=== PATIENT | male | born 1960 | race Caucasian/White ===

== ENCOUNTER 2022-04-27 11:23 | Observation (INO) ==
--- NOTE | 2022-04-14 13:32 | PAT Medication Instructions ---
Medication Instructions Date of Service April 14, 2022 Home Medications dexlansoprazole 60 mg capsule,biphase delayed release (Dexilant) 60 mg PO QAM losartan 100 mg-hydrochlorothiazide 25 mg tablet (Hyzaar) 1 tab PO QAM multivitamin 1 tab PO QAM potassium chloride 20 mEq tablet,extended release 20 meq PO QAM zolpidem 5 mg tablet (Ambien) 5 mg PO HS PRN Sleep DO NOT take the morning of surgery losartan 100 mg-hydrochlorothiazide 25 mg tablet (Hyzaar) 1 tab PO QAM multivitamin 1 tab PO QAM potassium chloride 20 mEq tablet,extended release 20 meq PO QAM Take morning of surgery With a small sip of water, OTHERWISE NOTHING TO EAT OR DRINK AFTER MIDNIGHT: dexlansoprazole 60 mg capsule,biphase delayed release (Dexilant) 60 mg PO QAM Take evening before surgery zolpidem 5 mg tablet (Ambien) 5 mg PO HS PRN Sleep (if needed) Other Notes If you have any questions please call us at [phone] or [phone] or [phone] or [phone]
--- NOTE | 2022-04-17 14:24 | Anesthesiology Consultation ---
Date of Service April 17, 2022 Assessment & Plan (1) Encounter for pre-operative examination: - Outpatient joint assessment: Patient is currently scheduled for inpatient pathway. If re-evaluated pending system levels during current pandemic/surgeon requests outpatient pathway, patient is acceptable candidate for outpatient joint program from anesthesia standpoint pending surgeon's office assessment of pt motivation/support/completion of same day joint program preop requirements. Chart Review Chart Review: Acceptable Risk for Surgery and Patient seen in Pre Admission Testing Teaching & Discussion Pre-Anesthesia Teaching/Discussion Notes: Instructed NPO after midnight before surgery, except medications with 15 cc of water. Medication instructions provided according to the PAT guidelines. History Surgery Operation Date: 04/27/22 10:05 Proposed Procedures p Left Total Shoulder Arthroplasty, Distal Clavicle Excision, Removal Loose Body, Biceps Tenodesis - Vineet Rome MD Height/Weight Height: 5 ft 10 in Weight: 99.79 kg Allergies Allergy/AdvReac Type Severity Reaction Status Date / Time sulfamethoxazole Allergy Mild Rash Verified 04/14/22 09:50 [From Bactrim] trimethoprim [From Bactrim] Allergy Mild Rash Verified 04/14/22 09:50 Medications Home Medications Medication Instructions Recorded Confirmed Last Taken dexlansoprazole 60 mg 60 mg PO QAM 04/14/22 04/14/22 Unknown capsule,biphase delayed release (Dexilant) losartan 100 1 tab PO QAM 04/14/22 04/14/22 Unknown mg-hydrochlorothiazide 25 mg tablet (Hyzaar) multivitamin 1 tab PO QAM 04/14/22 04/14/22 Unknown potassium chloride 20 mEq 20 meq PO QAM 04/14/22 04/14/22 Unknown tablet,extended release zolpidem 5 mg tablet (Ambien) 5 mg PO HS PRN Sleep 04/14/22 04/14/22 Unknown Past Medical History Medical History (Updated 04/17/22 @ 14:35 by Sammi Tafoya PA-C) GERD (gastroesophageal reflux disease) controlled, stable per pt History of COVID-26 OCTOBER 2021>denies hospitalization-RESOLVED Hypertension controlled, stable per pt Patient denies h/o stroke, seizures, heart attack, heart failure, DM, blood clots or blood transfusions. Exercise / Class Metabolic Activity II 4-5 Yardwork/Stairs/Walk up hill (denies CP or SOB with 1 FOS) Past Family History Family History Other No family history of adverse response to anesthesia Past Surgical History Surgical History H/O arthroscopic knee surgery MULTIPLE RT/LEFT SCOPES H/O shoulder surgery TOTAL 3 SURGERIES (RT/LEFT) H/O uvulectomy H/O wisdom tooth extraction History of cardiac cath 01/16/20: nonobstructive single-vessel coronary disease, no stent placement History of colonoscopy History of esophagogastroduodenoscopy (EGD) History of total knee replacement RT/LEFT Past Anesthesia History No Hx of Anesthesia Complications and No Family Hx of Anesthesia Complications History of PONV No Hx of PONV and No Hx of Motion Sickness Social History Smoking Status: Never smoker Do You Dip or Chew Tobacco: No Hx Alcohol Use: Yes Alcohol type: beer, wine and hard liquor alcohol intake frequency: a few times a month substance use type: does not use Review of Systems Snoring, denies witnessed apneas. Patient denies chest pain, shortness of breath, dyspnea on exertion, fever, chills, cough, wheezing, or palpitations. Physical Exam Vital Signs Vitals BP 119/79 P 74 TEMP 98.3 SP02 97% on RA RESP 18 Physical Full cervical extension range of motion without pain TMD 3.5 finger breadths Mallampati Score 2 Dentition: intact, one crown; denies chipped or loose teeth, implants or bridges Lungs: normal respiratory effort. Clear throughout to auscultation, no adventitious breath sounds Cardiac: regular rate and rhythm, no murmurs noted Carotid arteries: negative bruit bilat Lab Results Anesthesia Preop Results Results Anesthesia Widget: WBC 6.79 K/ul (4.8-10.8) 04/17/22 Hgb 16.1 g/dl (14.0-18.0) 04/17/22 Hct 46.0 % (40.1-51.0) 04/17/22 Plt 262 K/uL (130-400) 04/17/22 Na 138 mmol/L (136-145) 04/17/22 K 3.7 mmol/L (3.5-5.1) 04/17/22 Cl 102 mmol/L (98-107) 04/17/22 CO2 29 mmol/L (21-32) 04/17/22 BUN 17 mg/dl (6-23) 04/17/22 Creat 0.96 mg/dl (0.6-1.4) 04/17/22 Glucose Level 73 mg/dl (70-99(Fasting)) 04/17/22 PT 10.7 Seconds (9.0-12.0) 04/17/22 PTT 30.4 Seconds (21.0-31.0) 04/17/22 INR 1.0 (0.9-1.1) 04/17/22 HA1c 5.5 % (4.5-5.6) 04/17/22 Urine Color Yellow 04/17/22 Urine Appearance Clear (Clear) 04/17/22 Urine pH 5.5 (4.5-7.5) 04/17/22 Urine Specific [place] 1.017 (1.000-1.030) 04/17/22 Urine Protein Negative (Negative) 04/17/22 Urine Glucose (UA) Negative (Negative) 04/17/22 Urine Ketones Negative (Negative) 04/17/22 Urine Blood Negative (Negative) 04/17/22 Urine Nitrite Negative (Negative) 04/17/22 Urine Bilirubin Negative (Negative) 04/17/22 Urine Urobilinogen Negative (Negative) 04/17/22 Urine Leukocyte Esterase Negative (Negative) 04/17/22 Blood Type O Positive 04/17/22 Antibody Screen NEGATIVE 04/17/22 Testing Electrocardiogram Date: 04/17/22 NSR, rate 65 bpm Chest X-Ray Date: 04/17/22 Cardiac mediastinal and hilar silhouettes are within normal limits. There is no pneumothorax, pleural effusion, airspace consolidation or overt pulmonary edema. Bones of the chest appear grossly intact. IMPRESSION: No acute process. Cardiac Catheterization Date: 01/16/20 Left main: angiographically normal LAD: diffuse 40% narrowing with some ectasis on either side of the narrowing, proximal 20% stenosis Cx: angiographically normal RCA: angiographically normal EF 55%, no LV wall motion abnormality Non-obstructive single-vessel coronary disease COVID-19 Risk Screen Screening Information COVID-19 Screen Date: 04/17/22 Exposure 21 Days Family/Household +COVID Last 21 Days: No Exposure 10 Days Any COVID Exposure Last 10 Days: No Symptoms Last 10 Days Experienced COVID Sx Last 10 Days: No + COVID 0-90 Days COVID + in Last 0-90 Days: No
--- NOTE | 2022-04-26 18:00 | History & Physical Report ---
Date of Service April 26, 2022 Assessment & Plan (1) Primary osteoarthritis, left shoulder: Plan: Treatment options discussed with the patient. He has failed conservative measures and like to proceed with surgical intervention. Risks, benefits and alternatives to surgery including but not limited to infection, DVT, pain, stiffness, need for revision surgery, damage to blood vessels, damage to nerves, PE, , were discussed with the patient and they wish to proceed. Plan for left total shoulder arthroplasty, open subacromial decompression and distal clavicle excision, biceps tenodesis, excision loose bodies. Surgery scheduled for [facility] on April [address] Rome. We will plan on outpatient physical therapy. All questions answered. Patient will follow up postop. History of Present Illness Chief Complaint: Left shoulder pain Primary Care Provider: Matt Donnelly MD 61-year-old male with past medical history significant for hypertension who presents with ongoing left shoulder pain. Patient has pain interfering with his daily activities. He has failed conservative measures. He would like to proceed with surgical invention. Patient denies headaches, sweats, fevers, chills, double vision, blurred vision, cough, sore throat, dysphagia, chest pain, sob, wheezing, n/v/d/c, numbness, tingling, fatigue, urinary symptoms, mood disorders. ROS positive for left shoulder pain and stiffness. Allergies Allergy/AdvReac Type Severity Reaction Status Date / Time sulfamethoxazole Allergy Mild Rash Verified 04/14/22 09:50 [From Bactrim] trimethoprim [From Bactrim] Allergy Mild Rash Verified 04/14/22 09:50 Home Medications Medication Instructions Recorded Confirmed Type dexlansoprazole 60 mg 60 mg PO QAM 04/14/22 04/14/22 History capsule,biphase delayed release (Dexilant) losartan 100 1 tab PO QAM 04/14/22 04/14/22 History mg-hydrochlorothiazide 25 mg tablet (Hyzaar) multivitamin 1 tab PO QAM 04/14/22 04/14/22 History potassium chloride 20 mEq 20 meq PO QAM 04/14/22 04/14/22 History tablet,extended release zolpidem 5 mg tablet (Ambien) 5 mg PO HS PRN Sleep 04/14/22 04/14/22 History Past Med/Surg History Medical History (Updated 04/26/22 @ 17:58 by Gamaliel Koroma PA-C) GERD (gastroesophageal reflux disease) controlled, stable per pt History of COVID-26 OCTOBER 2021>denies hospitalization-RESOLVED Hypertension controlled, stable per pt Surgical History H/O arthroscopic knee surgery MULTIPLE RT/LEFT SCOPES H/O shoulder surgery TOTAL 3 SURGERIES (RT/LEFT) H/O uvulectomy H/O wisdom tooth extraction History of cardiac cath 01/16/20: nonobstructive single-vessel coronary disease, no stent placement History of colonoscopy History of esophagogastroduodenoscopy (EGD) History of total knee replacement RT/LEFT Family History Other No family history of adverse response to anesthesia Social History Smoking Status: Never smoker Second Hand Exposure: No; Hx Alcohol Use: Yes Alcohol type: beer, wine and hard liquor Preferred Language: Serbian Product Controller Required: No Beliefs That Will Affect Care: None Current Living Situation: Spouse Feels Safe at Home: Yes Assistive Devices: Glasses Review of Systems All systems reviewed & are unremarkable except as noted in HPI & below Physical Exam Constitutional: well developed and well nourished; no acute distress Eyes: PERRL, conjunctivae normal, anicteric sclerae ENMT: external ear and nose normal, oropharynx normal Neck: trachea midline, no thyromegaly Respiratory: normal respiratory effort, lungs clear to auscultation Cardiovascular: RRR, no murmur, no edema Musculoskeletal: Left shoulder: Tenderness AC joint, anterior glenoid. There is crepitation. Positive impingement signs, positive cross body test, positive [place]'s, positive speeds. Active painful range of motion. Abduction to 90 degrees, forward flexion to 30 degrees. Skin: no rashes, warm and dry Neurologic: patellar DTR's 2+ bilat, sensation intact Psychiatric: A+Ox3, euthymic affect Results & Data ([place]) Diagnostic Findings Left shoulder radiographs demonstrate significant glenohumeral joint osteoarthritis [id number] glenohumeral joint. There is periarticular osteophyte formation. MRI demonstrates rotator cuff tendinopathy without full- thickness tearing.
[~2022-04-27 11:23] MED LIST: ACETAMINOPHEN 500 MG TAB PO SCH; BUPIVACAINE 0.5 % 5 MG/1 ML PF 10ML VIAL ONE; FAMOTIDINE 20 MG TAB PO SCH; GABAPENTIN 600 MG DOSE PO SCH; LR 15ML/HR IV SCH; METOCLOPRAMIDE HCL 10 MG TABLET PO SCH; TRANEXAMIC ACID 1,000 MG **IV Intra-op IV SCH; TRANEXAMIC ACID 1,000 MG **IV Pre-op IV SCH; ceFAZolin 2000MG 2,000 MG/15 ML SYR IV SCH; dexAMETHasone 4 MG TAB PO SCH
[2022-04-27] MEDS ORDERED: EPINEPHrine HCL INJ 1 MG/ML 30ML ONE (12:27)
[2022-04-27] MEDS ORDERED: NEOSTIGMINE METHYLSULFATE 1 MG/ML 10ML VIAL ONE (12:28)
[2022-04-27] MEDS ORDERED: DEXAMETHASONE SOD INJ 4 MG/ML VIAL ONE (12:28)
[2022-04-27] MEDS ORDERED: GLYCOPYRROLATE 0.2 MG/ML VIAL ONE (12:28)
[2022-04-27] MEDS ORDERED: ONDANSETRON INJ 2 MG/ML 2 ML VIAL ONE (12:28)
[2022-04-27] MEDS ORDERED: LIDOCAINE 2% MPF LOCAL 5 ML VIAL INFIL ONE (12:28)
[2022-04-27] MEDS ORDERED: ROCURONIUM BROMIDE 10 MG/ML 5 ML VIAL IV ONE (12:28)
[2022-04-27] MEDS ORDERED: PROPOFOL IV EMULSION 10 MG/ML 20 ML VIAL IV ONE (12:28)
[2022-04-27] MEDS ORDERED: fentaNYL citrate 100 MCG/2 ML VIAL ONE ×2 (12:29→17:17)
[2022-04-27] MEDS ORDERED: MIDAZOLAM HCL 1 MG/ML 2ML VIAL ONE (12:29)
[2022-04-27] MEDS ORDERED: ATROPINE SULFATE 0.1 MG/ML 10ML SYR IV PRN (13:36)
[2022-04-27] MEDS ORDERED: ONDANSETRON INJ 2 MG/ML 2 ML VIAL IV PRN ×2 (13:36→19:09)
[2022-04-27] MEDS ORDERED: KETOROLAC 30 MG/ML VIAL IV PRN (13:36)
--- NOTE | 2022-04-27 14:06 | History & Physical Bridge Note ---
Date of Service April 27, 2022 History & Physical Bridge Note I have examined the patient, reviewed the History & Physical and in the interval since the performance of the History & Physical I have noted the following changes of clinical significance: no changes noted
--- NOTE | 2022-04-27 17:34 | Operative Report ---
Post Operative Report Pre & Post Diagnosis Operation Date: 04/27/22 13:55 Pre-Op Diagnosis: Left shoulder Osteoarthritis glenohumeral and acromioclavicular joints end- stage, Loose bodies biceps tendon sheath with biceps tenosynovitis, history of open rotator cuff repair Post-Op Diagnosis: Left shoulder Osteoarthritis, glenohumeral and acromioclavicular joints end- stage, loose bodies biceps tendon sheath and biceps tenosynovitis biceps tendinopathy, history of open rotator cuff repair with intact repair I identified the patient and participated in the time-out.: Yes Procedure Operation Date: 04/27/22 13:55 Actual Procedures p Left stemless total Shoulder Arthroplasty with posterior capsular plication, distal Clavicle Excision, Removal Loose Bodies biceps tendon sheath and Biceps Tenodesis(Left).- Vineet Rome MD Surgeon Vineet Rome MD Line Crewman Edmar REYES Estimated Blood Loss 75 Findings Consistent with Post-Op Diagnosis Specimens Humeral head and loose bodies Drains 2 Hemovac Anesthesia Type General Regional Complications none Disposition Disposition: Recovery Room Indications 61-year-old male with a chronic progressive pain left shoulder due to osteoarthritis. Is felt conservative management. He also has pain in his AC joint. Had a AC joint distal clavicle excision on the right shoulder with good results. Left shoulder demonstrates [id number] glenohumeral joint with typical inferior humeral osteophytes and arthritis in his AC joint previous subacromial decompression MRI demonstrates some thinning of the superior rotator cuff no clear evidence for rotator cuff tear with intact repair but he does have atrophy of the supraspinatus muscle which appears to be chronic. Patient does not have any substantial weakness of the supraspinatus clinically. Description of Procedure Patient was taken to the operating room anesthetized under regional block and general anesthetic. Patient was placed in a 40 degree beachchair position with a foam headrest protective eyewear all extremities padded teds and SCDs were placed. A towel roll was placed on the medial border of the scapula of the left upper extremity. The arm was examined and range of motion demonstrated 160 degrees forward flexion and abduction and external rotation 60 degrees internal rotation 50 degrees. Patient had an old saber scar from prior rotator cuff surgery.. An anterior deltopectoral approach was performed. Longitudinal incision was made in deltopectoral interval. Skin incised sharply and subcutaneous flaps elevated. The deltopectoral interval was identified. The cephalic vein demonstrated a small more lateral cephalic vein.. The cephalic vein was retracted laterally with the deltoid. The upper centimeter of the pectoralis was released for inferior exposure. Biceps tendon demonstrated large loose bodies in the biceps tendon sheath and chronic tenosynovitis and spurs in the bicipital groove and intra-articular widening of the biceps. 2 large loose bodies were removed measuring 1.9 x 1 cm and 1.1 x 0.9 cm.. The biceps was tenodesed to the pectoralis tendon using #2 FiberWire [id number] sutures. Proximal biceps was resected. The spurs in the bicipital groove were resected. Rotator cuff findings demonstrated intact rotator cuff repair and intact rotator cuff.. The circumflex vessels were tied off with silk ties and divided laterally. The subscapularis muscle fibers were split at the level of circumflex vessels and released off the inferior capsule with a Kitner elevator and then a blunt Hohmann retractor was placed protect the axillary nerve. The rotator interval was released down to the level of the glenoid. The subscapularis tendon was taken down with a transtendinous incision leaving a cuff of tissue for repair on the lesser tuberosity. The humeral head findings demonstrated large inferior humeral osteophytes and grade 4 eburnated bone in the mid upper humeral head with advanced wear on the remainder of the humeral head. The inferior osteophytes were resected using an artist chisel and rongeur. The inferior capsule was released off the bone subperiosteally using a Dalton elevator. A #1 Vicryl traction suture was placed into the free edge of the subscapularis tendon. A Fukuda retractor was placed into the joint. Capsule was released with Mon scissors down to the glenoid and off of the anterior glenoid to the rotator interval which was released to meet the capsular release creating a 360 degree release of subscapularis tendon. An anterior Bankart retractor was placed. The glenoid and labral findings demonstrated large calcified anterior-inferior labrum with osteophytes anteriorly and an early B2 glenoid with eburnated bone of the posterior half of the glenoid with posterior wear pattern and worn but still articular cartilage on the anterior half of the glenoid. The osteophyte was removed as well as the labrum. Intra-articular biceps was removed. No releases were performed posteriorly.. An anterior- inferior capsule release was performed electrocautery on bone and a Dalton elevator. The axillary nerve was protected inferiorly with the blunt Hohmann. Attention was taken back to the humeral head. Humeral head was exposed with extension and external rotation. The oscillating saw was used to make an anatomic neck cut removing the articular surface. All the circumferential remaining osteophytes were trimmed with a rongeur. The humerus was sized for a 2 nucleus and a 54 humeral head was best fit but we initially started with 52 head.. The bone was assessed with a thumb press test and there was solid cancellous bone. The guide for the nucleus was placed centrally and then the guidepin was placed. The surface reamer was used followed by the central drill for the nucleus. The trial nucleus was inserted and the cut protector was placed. The humerus was retracted posterior to the glenoid . A Tornier retractor ,Hohmann retractors as well as an anterior Bankart retractor were placed. The glenoid was fully exposed. The Tornier Cortiloc glenoid was used. The large 40 radius size was chosen. The central drill hole was made followed by the reamer for the glenoid followed by widening the central hole for the central post. The guide for the peripheral drill holes was placed and the drill holes were made. The trial reduction performed with stable fixation. The trial removed and the glenoid copiously irrigated with pulsed saline solution. The drill holes were packed with epinephrine-soaked tampons. The [place] G cement was vacuum mixed. The Cortiloc large 40 radius glenoid component was then cemented in position after drying the glenoid after removal of the tampons. Fixation was excellent. All excess cement was cleared. When the cement cured we moved onto removing the cut protector doing a trial reduction with a 52 millimeter humeral head trial. Stability was assessed and with just posterior translation there was about 50% translation posteriorly but with forward elevation and adduction and there was posterior subluxation so we went ahead and trialed the 56 soft tissue balancing heads and the 56 x 21 gave the best stability. The still slight subluxation so I went ahead remove the trials and placed the cut protector back on and did a posterior plication suture with #1 Vicryl in the central capsular region. Trials of paste black in place.. Soft tissue tension on the subscapularis tendon was satisfactory. Gentle stress demonstrated stable shoulder components. The trial components of the humeral head were removed and the 3 drill holes were made in the harder bone in the biceps groove area and transosseous #5 FiberWire sutures were placed. Then the humeral cut surface was reexposed with retractors and after irrigation the size 2 nucleus was impacted leaving it slightly proud until the 56 x 21 simplicity soft tissue balancing head was placed into the nucleus and then both were impacted into the humerus with a tight press-fit. The humerus was reduced to the glenoid. The stability was verified. The subscapularis tendon was repaired in 2 [id number] #2 FiberWire sutures. Lateral row fixation was performed with interrupted [id number]-[id number] #2 FiberWire sutures and rotator interval was closed with #2 FiberWire sutures. Range of motion demonstrated 130 degrees forward flexion external rotation to 50 degrees in the plane of the glenoid range of motion without tension on repair. The pectoralis was repaired with [id number] #2 FiberWire sutures placing sutures back through the biceps tendon to reinforce the tenodesis. An oblique incision extending from prior saber incision was made across the acromioclavicular joint. Subperiosteal dissection was performed to expose 1 cm distal clavicle. Findings at the acromioclavicular joint were marked narrowing significant arthritis dorsal osteophytes. Retractors were placed. 1 cm of distal clavicle was resected with an oscillating saw. Osteophytes were all resected with a rongeur. After irrigation with saline solution the deltotrapezial fascia was repaired with [id number] #2 FiberWire sutures subcutaneous tissues were closed with interrupted 2-0 Vicryl and the skin was closed with yolanda. 2 Hemovac drains were placed. The deltopectoral interval was repaired with [id number]-dw-bjray #1 Vicryl sutures. The subcutaneous tissue was repaired with 2- 0 Vicryl sutures and the skin was closed with yolanda. Sterile dressings were applied and a sling immobilizer. The patient tolerated the procedure well. Edmar REYES acted as physician's assistant throughout the procedure. He functioned as physician's assistant assisting in all aspects of the procedure including patient positioning prepping draping, arm positioning, soft tissue retraction,, instrument management, subcutaneous and skin closure and postop care the patient as well. I attest to the content of the Intraoperative Record and any orders documented therein. Any exceptions are noted below.
--- NOTE | 2022-04-27 17:57 | XRay Report ---
XR shoulder LT min 2V routine CLINICAL HISTORY: Post shoulder surgery COMPARISON: None FINDINGS: Postoperative findings consistent with left shoulder arthroplasty are noted. There is no p eriprosthetic fracture or unexpected radiopaque foreign body. Skin yolanda and surgical drains are no neal. IMPRESSION: Expected findings following left shoulder arthroplasty. ACT 112: Negative or not required by law. Electronically signed by: Dheeraj Hopkins M.D. 04/27/2022 5:56 PM
[2022-04-27] MEDS: fentaNYL citrate 100 MCG/2 ML VIAL IV PRN ×2 (17:59→18:20)
[2022-04-27] MEDS ORDERED: METOCLOPRAMIDE HCL INJ 5 MG/ML 2 ML VIAL IV PRN (19:09)
[2022-04-27] MEDS ORDERED: NALOXONE HCL 0.4 MG/1 ML VIAL/CARP IV PRN (19:09)
[2022-04-27] MEDS ORDERED: HYDROmorphone INJ 0.5 MG/0.5 ML SYR IV PRN (19:09)
[2022-04-27] MEDS ORDERED: bisacodyL 10 MG SUPP PR PRN (19:09)
[2022-04-27] MEDS ORDERED: oxyCODONE HCL IR 5 MG TAB (IMMEDIATE RELEASE) PO PRN (19:09)
[2022-04-27] MEDS ORDERED: MAGNESIUM HYDROXIDE SUSP 30 ML UDC PO PRN (19:09)
[2022-04-27] MEDS ORDERED: TAMSULOSIN HCL 0.4 MG CAP PO PRN (19:09)
[2022-04-27] MEDS ORDERED: ZOLPIDEM TARTRATE 5 MG TAB PO PRN (19:09)
[2022-04-27] MEDS: SODIUM CHLORIDE 0.9% 1000ML 1,000 ML IV SCH (19:18)
--- NOTE | 2022-04-27 19:39 | Anesthesiology Progress Note ---
Date of Service April 27, 2022 Anesthesia Post Procedure Vital Signs Vital Signs: Temp Pulse Pulse Resp BP Pulse Ox O2 Del Method 04/27/22 19:09 36.8 C 80 18 116/74 92 Room Air 04/27/22 18:45 36.7 C 89 16 128/76 93 Room Air 04/27/22 18:35 79 17 123/79 94 Nasal Cannula 04/27/22 18:20 81 14 119/77 95 Nasal Cannula 04/27/22 18:10 36.4 C L 82 15 129/79 95 Nasal Cannula 04/27/22 18:00 87 14 118/80 95 Nasal Cannula 04/27/22 17:50 88 13 132/88 95 Nasal Cannula 04/27/22 17:40 92 H 17 124/77 94 Nasal Cannula 04/27/22 17:34 36.6 C 94 H 13 110/71 95 Nasal Cannula 04/27/22 11:45 37 C 76 20 141/90 H 96 Room Air O2 Flow Rate 04/27/22 19:09 04/27/22 18:45 04/27/22 18:35 2 04/27/22 18:20 2 04/27/22 18:10 2 04/27/22 18:00 3 04/27/22 17:50 3 04/27/22 17:40 3 04/27/22 17:34 3 04/27/22 11:45 Pain Intensity Left Shoulder: Pain Intensity: 4 Left Axilla: Pain Intensity: 7 Transfer of Care Handoff Completed per policy Notes Mental Status: alert / awake / arousable Patient Amnestic to Procedure: Yes Nausea / Vomiting: adequately controlled Pain: adequately controlled Airway Patency, RR, SpO2: stable & adequate BP & HR: stable & adequate Hydration State: stable & adequate Anesthetic Complications: no major complications apparent
--- NOTE | 2022-04-27 20:03 | Hospitalist Consultation ---
Date of Consultation April 27, 2022 Assessment & Plan (1) Primary osteoarthritis, left shoulder: Tyler French is a 61-year-old male with past medical history of hypertension and GERD who is admitted for left shoulder arthroplasty in the setting of osteoarthritis. Left shoulder osteoarthritis Underwent left shoulder arthroplasty today Aspirin 81 mg twice daily per primary team Antiemetics and analgesics as needed Care per primary team Hypertension Currently well controlled Continue home losartan/HCTZ BMP in the morning GERD Currently well controlled, per patient Per hospital formulary, continue on pantoprazole 40 mg daily to substitute Dexilant 60 mg daily DVT prophylaxis: SCDs, ASA per primary team Diet: Heart healthy Dispo: MedSurg, discharge planning per primary team CODE STATUS: Full Thank you for allowing us to participate in the care of your patient. Please refer to attending documentation for any further changes. Luis Rangel MD (2) Hypertension: (3) GERD (gastroesophageal reflux disease): Supervising Physician Co-Signing Physician Notes Patient seen and examined, chart reviewed, case discussed with Dr. Marychuy Moralez and I agree with the assessment and plan as above except as otherwise noted above. 61yo M wit hPMHx of HTN, GERD, OA who present sfor scheduled L shoulder arthroplasty. At bedside doing well, resting anticipating a vital check soon then going to sleep. No abdominal pain. Sensation is startin to return as tingling to digits 1-3 of the L hand. No pain. No CP/CP/SoB/dyspnea. No nausea. No concerns. L hand in post-op dressing, drain in place draining sanginous material. Radial pulse intact. Lungs grossly clear, breathing unlabored. HR regular. Agree with plan above. Convert PPI to protonix while inpatient, may resume antihypertensives. BMP daily. DVT PPx and activity per surgical team. History of Present Illness Attending Physician: Vineet Rome MD History of Present Illness Tyler french is a 61-year-old male with past medical history of hypertension and GERD who is admitted for left shoulder arthroplasty in the setting of osteoarthritis. Underwent above procedure today and tolerated it well. Only notes some mild numbness of the first 3 digits of the left hand. Feels pain is well controlled and has not had any nausea or vomiting to this point. His most recent lab work on 04/17 showed normal CBC and normal electrolytes, no significant abnormalities. Upon my evaluation, patient is laying in bed comfortably with at bedside. His vital signs are stable and he is saying he feels up to trying some food at this time. He denies fever, chills, nausea, vomiting, headache, dizziness, numbness, tingling, chest pain, palpitations, shortness of breath, abdominal pain. Allergies Allergy/AdvReac Type Severity Reaction Status Date / Time sulfamethoxazole Allergy Mild Rash Verified 04/27/22 11:48 [From Bactrim] trimethoprim [From Bactrim] Allergy Mild Rash Verified 04/27/22 11:48 Home Medications Medication Instructions Recorded Confirmed Type dexlansoprazole 60 mg 60 mg PO QAM 04/14/22 04/27/22 History capsule,biphase delayed release (Dexilant) losartan 100 1 tab PO QAM 04/14/22 04/27/22 History mg-hydrochlorothiazide 25 mg tablet (Hyzaar) multivitamin 1 tab PO QAM 04/14/22 04/27/22 History potassium chloride 20 mEq 20 meq PO QAM 04/14/22 04/27/22 History tablet,extended release zolpidem 5 mg tablet (Ambien) 5 mg PO HS PRN Sleep 04/14/22 04/27/22 History Patient History Medical History (Updated 04/27/22 @ 20:15 by Luis Rangel MD) GERD (gastroesophageal reflux disease) controlled, stable per pt History of COVID-26 OCTOBER 2021>denies hospitalization-RESOLVED Hypertension controlled, stable per pt Surgical History H/O arthroscopic knee surgery MULTIPLE RT/LEFT SCOPES H/O shoulder surgery TOTAL 3 SURGERIES (RT/LEFT) H/O uvulectomy H/O wisdom tooth extraction History of cardiac cath 01/16/20: nonobstructive single-vessel coronary disease, no stent placement History of colonoscopy History of esophagogastroduodenoscopy (EGD) History of total knee replacement RT/LEFT Family History Other No family history of adverse response to anesthesia Social History Smoking Status: Never smoker Second Hand Exposure: No; Do You Dip or Chew Tobacco: No; Hx Alcohol Use: Yes Alcohol type: beer, wine and hard liquor Preferred Language: Malawian 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 NAD. HEENT: PERRL, EOMI. Moist mucous membranes. CHEST/LUNGS: CTAB A/P. No crackles, wheezes, rales, rhonchi. HEART: RRR. No m/g/r. No carotid bruits. ABDOMEN: NT/ND, soft. BS+ x4 EXTREMITIES: Left upper extremity with sling and Hemovac drains in place. No cyanosis, no clubbing, no edema. SKIN: Warm and dry. No rashes or lesions. PSYCHIATRIC: Euthymic affect, no SI, no pressured speech, no hallucinations NEUROLOGIC: No FND. Results & Data Results & Data ([facility]) Vital Signs (Past 12 Hours) Vital Signs Temp Pulse Pulse Resp BP Pulse Ox O2 Del Method 04/27/22 19:39 36.6 C 91 H 18 114/75 93 Room Air 04/27/22 19:09 36.8 C 80 18 116/74 92 Room Air 04/27/22 18:45 36.7 C 89 16 128/76 93 Room Air 04/27/22 18:35 79 17 123/79 94 Nasal Cannula 04/27/22 18:20 81 14 119/77 95 Nasal Cannula 04/27/22 18:10 36.4 C L 82 15 129/79 95 Nasal Cannula 04/27/22 18:00 87 14 118/80 95 Nasal Cannula 04/27/22 17:50 88 13 132/88 95 Nasal Cannula 04/27/22 17:40 92 H 17 124/77 94 Nasal Cannula 04/27/22 17:34 36.6 C 94 H 13 110/71 95 Nasal Cannula 04/27/22 11:45 37 C 76 20 141/90 H 96 Room Air O2 Flow Rate 04/27/22 19:39 04/27/22 19:09 04/27/22 18:45 04/27/22 18:35 2 04/27/22 18:20 2 04/27/22 18:10 2 04/27/22 18:00 3 04/27/22 17:50 3 04/27/22 17:40 3 04/27/22 17:34 3 04/27/22 11:45 Resident Activity Tracking Resident Involvement: Resident Care Provided Care Provided: Adult Hospital Medicine
[2022-04-27] MEDS: ASPIRIN 81 MG ECTAB PO SCH (20:32)
[2022-04-27] MEDS: DOCUSATE SODIUM 100 MG CAP PO SCH (20:32)
[2022-04-27] MEDS ORDERED: SENNA 8.6 MG TAB PO SCH (21:00)
[2022-04-27] MEDS: ACETAMINOPHEN 500 MG TAB PO SCH (22:21)
[2022-04-27] MEDS: ceFAZolin 2000MG 2,000 MG/15 ML SYR IV SCH (23:38)
[2022-04-28] MEDS: ACETAMINOPHEN 500 MG TAB PO SCH (03:55)
[2022-04-28] MEDS: SODIUM CHLORIDE 0.9% 1000ML 1,000 ML IV SCH (05:04)
[2022-04-28] MEDS ORDERED: HYDROCODONE/ACETAMOPHEN 5/325MG TAB PO PRN (07:06)
--- NOTE | 2022-04-28 07:11 | Orthopedic Progress Note ---
Date of Service April 28, 2022 Assessment & Plan (1) Primary osteoarthritis, left shoulder: Plan: Postop day #1 left shoulder arthroplasty -PT/OT: No formal therapy at this time. May do elbow wrist and hand motion. Shrugs, pendulums. -Pain management as written -A.m. labs pending -DVT prophylaxis: SCDs, aspirin 81 mg twice daily -Discharge planning: Plan on discharge home later today Admission and Anticipated Discharge Date Admission Date: April 27, 2022 Subjective Postop day 1 left total shoulder arthroplasty. Pain is well controlled at this time. No other complaints. Denies chest pain, shortness of breath, nausea/vomiting/diarrhea, headache/dizziness. Review of Systems 2 Review of Systems: All systems reviewed & are unremarkable except as noted in Subjective Physical Exam Physical Exam: Left shoulder: Sling in place. Dressing is clean, dry, intact. Hemovac on suction. Fingers are mobile with good experimental mechanic outboard motors strength. Distal neurovascular status and sensation intact. Results & Data ([facility]) Vital Signs (Past 12 Hours) Vital Signs Temp Pulse Resp BP Pulse Ox O2 Del Method 04/28/22 06:24 36.5 C 88 16 118/78 96 Room Air 04/28/22 02:00 36.5 C 83 14 127/77 94 Room Air 04/27/22 21:57 36.6 C 87 16 94 Room Air 04/27/22 20:39 36.7 C 92 H 18 116/78 94 Room Air 04/27/22 19:39 36.6 C 91 H 18 114/75 93 Room Air 04/27/22 19:09 36.8 C 80 18 116/74 92 Room Air
--- NOTE | 2022-04-28 08:31 | Hospitalist Progress Note ---
Date of Service April 28, 2022 Assessment & Plan (1) Primary osteoarthritis, left shoulder: Plan: Tyler Joiner is a 61-year-old male with past medical history of hypertension and GERD who is admitted for left shoulder arthroplasty in the setting of osteoarthritis. Left shoulder osteoarthritis Underwent left shoulder arthroplasty yesterday Aspirin 81 mg twice daily per primary team Antiemetics and analgesics as needed Care per primary team (2) Hypertension: Plan: Hypertension Currently well controlled 117/73 Continue home losartan/HCTZ (3) GERD (gastroesophageal reflux disease): Plan: GERD Currently well controlled, per patient Per hospital formulary, continue on pantoprazole 40 mg daily to substitute h ome PPI while inpatient and restart Dexilant 60 mg daily tomorrow at home (4) Leukocytosis: Plan: Possibly acute phase reactant vs dose of dexamethasone given in OR yesterday. Repeat CBC as outpatient through primary care physician Plan DVT prophylaxis: SCDs, ASA BID per primary team Diet: Heart healthy Dispo: MedSurg, discharge planning per primary team CODE STATUS: Full Admission and Anticipated Discharge Date Admission Date: April 27, 2022 Supervising Physician Co-Signing Physician Notes chart reviewed, agree nina Reynolds PAC, as above Subjective Patient is awake, dressed, sitting up in bed. Patient has OA and is S/P Left shoulder arthroplasty 04/27/22. He is on ASA BID. He is to have his drain pulled and then discharged to home. He denies any chest pain, SOB, abdominal pain. He has not had a BM but is passing flatus and feels like shortly he will have a BM. He had stool softeners. CBC with elevated WBC today. No fevers, chills, congestion, cough, CP or SOB, or urine sxs. Review of Systems Constitutional: no fever, no chills and no weight loss Respiratory: no cough, no dyspnea and no hemoptysis Cardiovascular: no chest pain, no syncope and no calf pain Gastrointestinal: no abdominal pain, no vomiting and no constipation Integumentary: no rash, no lesions and no new lesions Physical Exam Constitutional: WD/WN, vitals as above Neck: trachea midline, no thyromegaly Respiratory: normal respiratory effort, lungs clear to auscultation Cardiovascular: RRR, no murmur, no edema Gastrointestinal (Abdomen): normal bowel sounds, soft, nontender, no hepatosplenomegaly Results & Data Results & Data ([facility]) Vital Signs (Past 12 Hours) Vital Signs Temp Pulse Pulse Resp BP Pulse Ox O2 Del Method 04/28/22 07:42 36.5 C 86 18 117/73 96 Room Air 04/28/22 06:24 36.5 C 88 16 118/78 96 Room Air 04/28/22 02:00 36.5 C 83 14 127/77 94 Room Air 04/27/22 21:57 36.6 C 87 16 94 Room Air 04/27/22 20:39 36.7 C 92 H 18 116/78 94 Room Air Laboratory Results Abnormal lab results 04/28/22 04/28/22 Range/Units 09:03 09:03 WBC 17.60 H (4.8-10.8) K/ul Neut # (Auto) 15.18 H (1.4-6.5) K/uL Lymph # (Auto) 1.09 L (1.2-3.4) K/uL [place] # (Auto) 1.21 H (0.24-0.82) K/uL Immature Gran # (Auto) 0.10 H (0.00-0.02) K/uL Glucose 126 H (70-99(Fasting)) mg/dl Diagnostic Findings Shoulder X-Ray 04/27/22 17:36 XR shoulder LT min 2V routine CLINICAL HISTORY: Post shoulder surgery COMPARISON: None FINDINGS: Postoperative findings consistent with left shoulder arthroplasty are noted. There is no periprosthetic fracture or unexpected radiopaque foreign body. Skin yolanda and surgical drains are noted. IMPRESSION: Expected findings following left shoulder arthroplasty. ACT 112: Negative or not required by law. Electronically signed by: Dheeraj Hopkins M.D. 04/27/2022 5:56 PM PG Care Time/CCT Total # of Minutes Spent Total Time Spent with Patient: Total time spent is greater than 50% in coordination of care (as documented) at patient's floor/unit and/or counseling patient: Coding Level of Care Code 93544 Subseq Hosp Care Lvl 1 Diagnoses Primary osteoarthritis, left shoulder M19.012 Hypertension I10 GERD (gastroesophageal reflux disease) K21.9 Leukocytosis D72.829 Time Spent (min) 10
[2022-04-28] MEDS: ASPIRIN 81 MG ECTAB PO SCH (08:56)
[2022-04-28] MEDS: ceFAZolin 2000MG 2,000 MG/15 ML SYR IV SCH (08:56)
[2022-04-28] MEDS: DOCUSATE SODIUM 100 MG CAP PO SCH (08:56)
[2022-04-28] MEDS ORDERED: POTASSIUM CHLORIDE CRTAB 20 MEQ TABCR PO SCH (09:00)
[2022-04-28] MEDS ORDERED: PANTOprazole 40 MG TAB PO SCH (09:00)
[2022-04-28] MEDS ORDERED: LOSARTAN/HCTZ 50/12.5MG TAB PO SCH (09:00)
[2022-04-28] MEDS ORDERED: MULTIVITAMIN TAB PO SCH (09:00)
[2022-04-28] MEDS ORDERED: NON-FORMULARY MEDICATION (Multivitamin Tablet) PO SCH (09:00)
[2022-04-28 09:24] LABS: Basophils # (auto) 0.02 K/uL (0-0.2); Basophils % (auto) 0.1 %; Hematocrit (blood only) 42.9 % (40.1-51.0); Immature Granulocytes % (auto) 0.6 %; Lymphocytes # (auto) 1.09 K/uL (1.2-3.4); Lymphocytes % (auto) 6.2 %; Mean Corpuscular Hemoglobin 30.9 pg (25.0-34.0); Mean Corpuscular Volume 88.5 fL (80.0-100.0); Mean Platelet Volume 11.2 fL (9.4-12.4); Monocytes # (auto) 1.21 K/uL (0.24-0.82); Monocytes % (auto) 6.9 %; Neutrophils # (auto) 15.18 K/uL (1.4-6.5); Neutrophils % (auto) 86.2 %; Platelet Count 256 K/uL (130-400); RDW Coefficient of Variation 12.4 % (11.5-14.5); RDW Standard Deviation 40.4 fL (36.4-46.3); Red Blood Count 4.85 M/uL (4.63-6.08)
[2022-04-28 10:06] LABS: BUN Creatinine Ratio 19.2 (10-20); Calcium 9.1 mg/dl (8.5-10.1); Creatinine Clr Calc Pharmacy 92.5 ml/min; Est GFR (African American) 94.9 ml/min; Est GFR (Non-African American) 81.9 ml/min; Potassium 3.6 mmol/L (3.5-5.1)
--- NOTE | 2022-04-28 12:45 | Discharge Summary ---
Date of Service April 28, 2022 Admission HPI Per Admitting Provider 61-year-old male with past medical history significant for hypertension who presents with ongoing left shoulder pain. Patient has pain interfering with his daily activities. He has failed conservative measures. He would like to proceed with surgical invention. Patient denies headaches, sweats, fevers, chills, double vision, blurred vision, cough, sore throat, dysphagia, chest pain, sob, wheezing, n/v/d/c, numbness, tingling, fatigue, urinary symptoms, mood disorders. ROS positive for left shoulder pain and stiffness. Admission Exam Per Admitting Provider Constitutional: well developed and well nourished; no acute distress Eyes: PERRL, conjunctivae normal, anicteric sclerae ENMT: external ear and nose normal, oropharynx normal Neck: trachea midline, no thyromegaly Respiratory: normal respiratory effort, lungs clear to auscultation Cardiovascular: RRR, no murmur, no edema Musculoskeletal: Left shoulder: Tenderness AC joint, anterior glenoid. There is crepitation. Positive impingement signs, positive cross body test, positive Dyess's, positive speeds. Active painful range of motion. Abduction to 90 degrees, forward flexion to 30 degrees. Skin: no rashes, warm and dry Neurologic: patellar DTR's 2+ bilat, sensation intact Psychiatric: A+Ox3, euthymic affect Principal Diagnosis Left shoulder osteoarthritis Discharge Exam Left shoulder: Sling in place. Dressing is clean, dry, intact. Hemovac on suction. Fingers are mobile with good shadowgraph operator strength. Distal neurovascular status and sensation intact. Constitutional well developed and well nourished; no acute distress Discharge Data Allergies Allergy/AdvReac Type Severity Reaction Status Date / Time sulfamethoxazole Allergy Mild Rash Verified 04/27/22 11:48 [From Bactrim] trimethoprim [From Bactrim] Allergy Mild Rash Verified 04/27/22 11:48 Consultations 04/22/22 17:38 Consult Hospitalist Routine Procedures Performed Operation Date: 04/27/22 13:55 Actual Procedures p Left Total Shoulder Arthroplasty with Distal Clavicle Excision, Removal Loose Body and Biceps Tenodesis(Left) - Vineet Rome MD Ordered Studies 04/27/22 05:00 US - OR guided needle placemen Routine Hospital Course (1) Primary osteoarthritis, left shoulder: Postop day #1 left shoulder arthroplasty -PT/OT: No formal therapy at this time. May do elbow wrist and hand motion. Shrugs, pendulums. -Pain management as written -A.m. labs pending -DVT prophylaxis: SCDs, aspirin 81 mg twice daily -Discharge planning: Plan on discharge home later today Lab Results 04/27/22 04/28/22 04/28/22 Range/Units 11:00 09:03 09:03 WBC 17.60 H (4.8-10.8) K/ul RBC 4.85 (4.63-6.08) M/uL Hgb 15.0 (14.0-18.0) g/dl Hct 42.9 (40.1-51.0) % MCV 88.5 (80.0-100.0) fL MCH 30.9 (25.0-34.0) pg MCHC 35.0 (32.0-36.0) g/dL RDW Std Deviation 40.4 (36.4-46.3) fL RDW Coeff of Dinh 12.4 (11.5-14.5) % Plt Count 256 (130-400) K/uL MPV 11.2 (9.4-12.4) fL Immature Gran % (Auto) 0.6 % Neut % (Auto) 86.2 % Lymph % (Auto) 6.2 % [place] % (Auto) 6.9 % Eos % (Auto) 0.0 % Baso % (Auto) 0.1 % Neut # (Auto) 15.18 H (1.4-6.5) K/uL Lymph # (Auto) 1.09 L (1.2-3.4) K/uL [place] # (Auto) 1.21 H (0.24-0.82) K/uL Eos # (Auto) 0.00 (0-0.50) K/uL Baso # (Auto) 0.02 (0-0.2) K/uL Immature Gran # (Auto) 0.10 H (0.00-0.02) K/uL Sodium 137 (136-145) mmol/L Potassium 3.6 (3.5-5.1) mmol/L Chloride 101 (98-107) mmol/L Carbon Dioxide 28 (21-32) mmol/L Anion Gap 8 (3-11) BUN 19 (6-23) mg/dl Creatinine 0.99 (0.6-1.4) mg/dl Est Cr Clr Drug Dosing 92.5 ml/min Est GFR ( Amer) 94.9 ml/min Est GFR (Non-Af Amer) 81.9 ml/min BUN/Creatinine Ratio 19.2 (10-20) Glucose 126 H (70-99(Fasting)) mg/dl Calcium 9.1 (8.5-10.1) mg/dl SARS-CoV-2, RNA, NAAT NEGATIVE (NEGATIVE) Total Time Total Time Spent Total Time Spent (In Minutes): 20 Discharge Plan Discharge Items Patient Disposition: Home - Self-Care Reason For Visit: Left shoulder Osteoarthritis, Loose Body Discharge Diagnosis: Left shoulder osteoarthritis Activity: Per Instructions section Non-emergency contact: Surgeon Call non-emergency contact if: you have any medication questions, your pain is not controlled, your pain is concerning for you, you have a fever, your temperature is above 101, your wound has increased redness and your wound has increased drainage Follow-up/Referrals: Matt Donnelly MD [Primary Care Provider] - 05/05/22 2:45 pm Diet: Regular Addtl Attending Provider Instructions: ACTIVITY RECOMMENDATIONS: SELF CARE INSTRUCTIONS AFTER TOTAL SHOULDER ARTHROPLASTY A. You may do daily exercises as taught in physical therapy while in hospital. No lifting with the operative arm. Please schedule your outpatient physical therapy appointment to begin within 2-3 days after leaving the hospital. Specific restrictions will be written on your physical therapy prescription that is provided to you. B. You are to wear your sling/immobilizer at all times EXCEPT when performing your daily exercises, participating in physical therapy and for hygiene purposes. C. You may perform dry, daily dressing changes. Please keep your incision covered. You may shower 48 hours after surgery. Do not apply soap or any ointment/lotions directly over incision. Do not soak incision in bath tub/swimming pool. D. You may use ice as needed to operative shoulder. We will be holding physical therapy until you are instructed to begin in the office. SPECIAL CARE INSTRUCTIONS: MEDICATION INSTRUCTIONS: *It is recommended you take Aspirin 81mg twice daily for four weeks post-op. VERY IMPORTANT TO READ AND REVIEW A. There are a few signs you need to watch for after you are home. Call [facility] at [phone] if you experience any of the followin. Increased severe shoulder pain. Some pain is expected especially when you exercise. 2. Increased swelling in you shoulder or arm; pain or swelling in either upper extremity. 3. Any fluid drainage from the incision. 4. Shortness of breath or chest pain. B. Please call [facility] at [phone] if you have any questions or concerns about your operation or recovery. C. Call your physician if: 1. Temperature is greater than 101 degrees (F). 2. Pain is not relieved by prescribed pain medications. 3. Increase drainage or redness from incision. 4. Unanswered questions or concerns. FOLLOW UP VISIT: Please call [facility] at [phone] to schedule a follow up appointment with Dr. Rome or his PA in 12-14 days from your surgery date. Addtl Senior Policy Advisor Provider Instructions: Mild elevation of WBCs on discharge without any fever or signs of infection. Recommend to have a repeat CBC in 1 week through primary care physician Stand-Alone Forms: [facility], Smoking Cessation Medications and DC Order Prescriptions: New aspirin 81 mg Tablet,Delayed Release (Dr/Ec) 81 mg PO BID Qty: 60 0RF hydrocodone-acetaminophen 5-325 mg Tablet 1 - 2 tab PO .Q4h-6h MDD 6 PRN (Reason: pain) Qty: 30 0RF Rx Instructions: Ongoing therapy, Dr. Rome supervising Continued multivitamin Tablet 1 tab PO QAM losartan-hydrochlorothiazide [Hyzaar] 100-25 mg Tablet 1 tab PO QAM zolpidem [Ambien] 5 mg Tablet 5 mg PO HS PRN (Reason: Sleep) dexlansoprazole [Dexilant] 60 mg Capsule,Biphase Delayed Releas 60 mg PO QAM potassium chloride 20 mEq Tablet Extended Release 20 meq PO QAM Discharge Orders: Discharge Order (Routine); Ordered 04/28/22 Ordered By: Gamaliel Koroma Admission Data Admit Date/Time: 04/27/22 17:36 Attending Provider: Miki Kulkarni Admit Provider: Vineet Rome Primary Care Provider: Matt Donnelly V. Other Providers: Rip Leija ; Rog[place]ky,Vineet J Other Interventions: Discharge Summary Assessment (RN) Last Done: 04/28/22 11:42
== END 2022-04-28 12:14 | disposition home or self-care (01) ==
LOC: ASU 11:23 → 3N 17:36 → SUATTDRO 17:36 → INTOOBSV 17:36